=== PATIENT | male | born 1985 ===

== ENCOUNTER → 2022-12-29 | Day surgery (SDC) | payer OTHER ==
[~2022-12-29] VITALS: Ht 182.9 cm; Wt 77.1 kg
[~2022-12-29] MED LIST: LIPITOR20 M1 PO; LISINOPRIL20 M1 PO; TORADOL PO
[2022-12-29 12:34] VITALS: BP 139/83
== END | disposition home or self-care (01) | DRG 352 ==
LOC: ORM 07:10
PROVIDERS: ATTEND Surgery
PROC: 0YU54JZ Supplement Right Inguinal Region with Synthetic Substitute, Percutaneous Endoscopic Approach (ICD-10-PCS; principal; 2022-12-29)
DX: K40.90 Unilateral inguinal hernia, without obstruction or gangrene, not specified as recurrent (principal); I10 Essential (primary) hypertension
CPT/HCPCS: J0131; J0690